=== PATIENT | female | born 2000 | race Caucasian/White ===

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

== ENCOUNTER 2019-01-26 21:44 | Emergency (ER) | payer OTHER ==
[~2019-01-26] VITALS: Ht 165.1 cm; Wt 54.4 kg
[~2019-01-26 21:44] MED LIST changes: -ALBUTEROL SULFATE 2.5 MG/3 ML NEBU NEB ONE; -IPRATROPIUM BROMIDE 0.5 MG/2.5 ML NEBU NEB ONE; -predniSONE 10 MG TABLET PO ONE
--- NOTE | 2019-01-26 21:49 | NUR ---
DR. ALFONSO AT BEDSIDE FOR MSE.
[2019-01-26] MEDS ORDERED: ALBUTEROL SULFATE 2.5 MG/3 ML NEBU NEB ONE (22:00)
[2019-01-26] MEDS ORDERED: IPRATROPIUM BROMIDE 0.5 MG/2.5 ML NEBU NEB ONE (22:00)
[2019-01-26] MEDS ORDERED: predniSONE 50 MG TABLET PO ONE (22:00)
[2019-01-26] MEDS ORDERED: ALBUTEROL SULFATE 2.5 MG/3 ML NEBU ONE (22:02)
[2019-01-26] MEDS ORDERED: IPRATROPIUM BROMIDE 0.5 MG/2.5 ML NEBU ONE (22:02)
[2019-01-26] MEDS ORDERED: predniSONE 50 MG TABLET ONE (22:16)
[2019-01-26 23:00] VITALS: BP 137/86
== END 2019-01-26 23:01 | disposition home or self-care (01) ==
LOC: ER 21:47
DX: J45.901 Unspecified asthma with (acute) exacerbation (principal); F11.10 Opioid abuse, uncomplicated; F17.210 Nicotine dependence, cigarettes, uncomplicated; Z79.899 Other long term (current) drug therapy
CPT/HCPCS: 94640; 99283; J7512; A4663; J3590

== ENCOUNTER 2019-05-14 22:31 | Emergency (ER) | payer OTHER ==
[~2019-05-14] VITALS: Ht 167.6 cm; Wt 54.4 kg
[2019-05-14] MEDS ORDERED: IPRATROPIUM BROMIDE 0.5 MG/2.5 ML NEBU NEB ONE (22:45)
[2019-05-14] MEDS ORDERED: predniSONE 10 MG TABLET PO ONE (22:45)
[2019-05-14] MEDS ORDERED: ALBUTEROL SULFATE 2.5 MG/3 ML NEBU NEB ONE (22:45)
[2019-05-14] MEDS ORDERED: FLUO20CA36 PO (22:47)
[2019-05-14] MEDS ORDERED: ALPR1TAB7 PO (22:48)
--- NOTE | 2019-05-14 22:48 | NUR ---
PT STATED SHE WOKE UP WITH SOB SHE BECAME NERVOUS AND CAME TO THE ER SOB ON REST WITH INSPIRATORY AND EXPIRATORY WHEEZING BILATERAL PT SMOKES CIGARETTES DAILY TEACHING GIVEN R/T TO QUIT WITHOUT SUCCESS AND HAS A HX ASTHMA
[2019-05-14] MEDS ORDERED: predniSONE 10 MG TABLET ONE (22:50)
[2019-05-14] MEDS ORDERED: predniSONE 50 MG TABLET ONE (22:51)
[2019-05-14 23:02] LABS: BASOPHILS # (AUTO) 0.1 K/uL (0.0-8.0); BASOPHILS % (AUTO) 1.4 % (0.0-2.0); EOSINOPHILS # (AUTO) 1.5 K/uL (0.0-0.7); HEMATOCRIT 40.7 % (31.2-41.9); HEMOGLOBIN 13.4 g/dL (10.9-14.3); LYMPHOCYTES # (AUTO) 3.3 K/uL (20.0-40.0); LYMPHOCYTES % (AUTO) 37.7 % (20.5-74.5); MEAN CORPUSCULAR HEMOGLOBIN 27.2 uug (24.7-32.8); MEAN CORPUSCULAR HGB CONC 33 g/dL (32.3-35.6); MEAN CORPUSCULAR VOLUME 82.7 fL (75.5-95.3); MONOCYTES # (AUTO) 0.7 K/uL (2.0-10.0); NEUTROPHILS # (AUTO) 3.2 K/uL (1.8-8.9); NEUTROPHILS % (AUTO) 35.9 % (31.5-64.5); PLATELET COUNT (AUTO) 342 K/uL (179-408); RED BLOOD CELL COUNT(AUTO) 4.92 MIL/uL (3.63-4.92); WHITE BLOOD COUNT (AUTO) 8.8 K/uL (3.8-11.8)
[2019-05-14 23:11] LABS: CREATININE 0.8 mg/dL (0.6-1.3); POTASSIUM 4.4 mmol/L (3.5-5.1)
--- NOTE | 2019-05-14 23:17 | NUR ---
REASSESS PT CONDITION STABLE SHE WAS ON HER CELL PHONE DENIES PAIN/DISCOMFORT AT THIS TIME
[2019-05-14 23:27] LABS: BILIRUBIN,DIRECT 0.1 mg/dL (0.0-0.2); BILIRUBIN,TOTAL 0.2 mg/dL (0.2-1.0); TOTAL PROTEIN, SERUM 7.6 g/dL (6.4-8.2)
--- NOTE | 2019-05-14 23:35 | NUR ---
PATIENT DECLINED XRAY @ 11:30P
--- NOTE | 2019-05-15 00:50 | NUR ---
PT DISCHARGE TO HOME CONDITION STABLE DISCHARGE TEACHING GIVEN AND PRESCRIPTION TEACHING GIVEN WITH EFFECT DENIES PAIN/DISCOMFORT
[2019-05-15 01:03] VITALS: BP 133/70
== END 2019-05-15 00:50 | disposition home or self-care (01) ==
LOC: ER 22:33
DX: J45.901 Unspecified asthma with (acute) exacerbation (principal); F11.10 Opioid abuse, uncomplicated; F17.210 Nicotine dependence, cigarettes, uncomplicated; Z71.6 Tobacco abuse counseling; Z79.899 Other long term (current) drug therapy
CPT/HCPCS: 36415; 80048; 80076; 83880; 84484; 85025; 87040 ×2; 93005; 94644; 99285; 99406; J7512 ×2; 70030-TC; A4663; J3590

== ENCOUNTER 2019-05-29 06:28 | Emergency (ER) | payer OTHER ==
[~2019-05-29] VITALS: Ht 167.6 cm; Wt 54.4 kg
[~2019-05-29 06:28] MED LIST changes: +ALPR1TAB7 PO; +FLUO20CA36 PO
--- NOTE | 2019-05-29 06:51 | NUR ---
pt stated she has trouble breathing lung sounds cta but pt has a hx asthma
[2019-05-29] MEDS ORDERED: ALBUTEROL SULFATE 2.5 MG/3 ML NEBU ONE (06:59)
[2019-05-29] MEDS ORDERED: ALBUTEROL SULFATE 2.5 MG/3 ML NEBU NEB ONE (07:00)
--- NOTE | 2019-05-29 07:33 | NUR ---
pt was d/c to home. d/c instructions given to the pt by dr oliver.
[2019-05-29 07:34] VITALS: BP 134/65
== END 2019-05-29 07:35 | disposition home or self-care (01) ==
LOC: ER 06:28
DX: J45.901 Unspecified asthma with (acute) exacerbation (principal); F17.210 Nicotine dependence, cigarettes, uncomplicated; F11.10 Opioid abuse, uncomplicated; Z59.0 Homelessness; Z79.899 Other long term (current) drug therapy
CPT/HCPCS: A4663

== ENCOUNTER 2019-06-13 11:21 | Emergency (ER) | payer OTHER ==
[~2019-06-13] VITALS: Ht 167.6 cm; Wt 54.4 kg
--- NOTE | 2019-06-13 11:33 | NUR ---
Patient discharged to home in stable conditon. Written and verbal after care instructions given. Patient verbalizes understanding of instructions.
[2019-06-13 11:42] VITALS: BP 116/78
== END 2019-06-13 11:30 | disposition home or self-care (01) ==
LOC: ER 11:21
DX: J45.901 Unspecified asthma with (acute) exacerbation (principal); F17.210 Nicotine dependence, cigarettes, uncomplicated; F11.10 Opioid abuse, uncomplicated; Z59.0 Homelessness; Z79.899 Other long term (current) drug therapy
CPT/HCPCS: A4663

== ENCOUNTER 2019-07-09 21:54 | Emergency (ER) | payer SELFPAY ==
--- NOTE | 2019-07-09 21:58 | NUR ---
Patient not in waiting room.
--- NOTE | 2019-07-09 22:25 | NUR ---
Patient left without being seen by ER physician or triaged.
== END 2019-07-09 22:27 | disposition left against medical advice (07) ==
LOC: ER 21:54
DX: Z53.21 Procedure and treatment not carried out due to patient leaving prior to being seen by health care provider (principal)

== ENCOUNTER 2019-10-08 03:41 | Emergency (ER) | payer OTHER ==
[~2019-10-08] VITALS: Ht 167.6 cm; Wt 54.4 kg
--- NOTE | 2019-10-08 03:52 | NUR ---
PATIENT WAS MSE BY DR PAIZ IN ROOM 04A. PATIENT A & O X3.
[2019-10-08] MEDS ORDERED: predniSONE 20 MG TABLET ONE (03:56)
[2019-10-08] MEDS ORDERED: ALBUTEROL SULFATE 2.5 MG/3 ML NEBU NEB ONE ×2 (04:00→06:15)
[2019-10-08] MEDS ORDERED: ALBUTEROL SULFATE 2.5 MG/3 ML NEBU ONE ×2 (04:00→06:17)
[2019-10-08] MEDS ORDERED: IPRATROPIUM BROMIDE 0.5 MG/2.5 ML NEBU NEB ONE ×2 (04:00→06:15)
[2019-10-08] MEDS ORDERED: predniSONE 10 MG TABLET PO ONE (04:00)
[2019-10-08] MEDS ORDERED: IPRATROPIUM BROMIDE 0.5 MG/2.5 ML NEBU ONE ×2 (04:01→06:17)
--- NOTE | 2019-10-08 07:14 | NUR ---
Architectural Practice Manager assumes care, hands off report received from ROMANA Lowery. Received patient is for discharge, pending arrival of patient's mother for ride. Patient is resting comfortably on gurney with eyes closed, respiration:easy, clear breathsounds bilaterally, NAD.
--- NOTE | 2019-10-08 07:54 | NUR ---
Juice and crackers provided. Patient is trying to call for her ride.PATIENT IS PAIN FREE AT THIS TIME. Patient discharged to home in stable conditon. Written and verbal after care instructions given to patient. Patient verbalizes understanding & compliance of instructions.
--- NOTE | 2019-10-08 08:03 | NUR ---
Patient is AOx4, & said, "If my mother comes here, tell her I walked home. I can't wait for her." Patient left ER with brisk steady gait.
== END 2019-10-08 08:05 | disposition home or self-care (01) ==
LOC: ER 03:44
DX: J45.901 Unspecified asthma with (acute) exacerbation (principal); F41.9 Anxiety disorder, unspecified; F17.210 Nicotine dependence, cigarettes, uncomplicated; Z79.899 Other long term (current) drug therapy
CPT/HCPCS: 94640; 94644; 99285; 99406; J7512; A4663; J3590

== ENCOUNTER 2020-06-28 22:09 | Emergency (ER) | payer MEDICAID, OTHER ==
[~2020-06-28] VITALS: Ht 167.6 cm; Wt 54.4 kg
[2020-06-28] MEDS ORDERED: LORA1TAB PO (22:17)
[2020-06-28] MEDS ORDERED: PRED-170 PO (22:17)
[2020-06-28] MEDS ORDERED: ALPR1TAB2 PO (22:17)
--- NOTE | 2020-06-28 22:41 | NUR ---
Dr. Ely at bedside for MSE.
--- NOTE | 2020-06-28 23:25 | NUR ---
Pt asked me if she can step outside to answer a very important phone call outside of er. instructed pt to comeback right away.
--- NOTE | 2020-06-28 23:30 | NUR ---
Michelle CARRILLO reported that patient asked to go out for a " very important phone call" five minutes ago, and has not come back since. Security was already notified by Michelle CARIRLLO.
--- NOTE | 2020-06-28 23:43 | NUR ---
Pt has not come back and security has not reported any signs of her within the vicinity. Pt was alert and oriented and able to make decisions for herself, appears that she eloped without being discharged by the doctor. MD and Charge Nurse made aware.
== END 2020-06-28 23:49 | disposition left against medical advice (07) ==
LOC: ER 22:11
DX: M79.641 Pain in right hand (principal); F17.210 Nicotine dependence, cigarettes, uncomplicated; J45.909 Unspecified asthma, uncomplicated; F41.9 Anxiety disorder, unspecified; Z79.52 Long term (current) use of systemic steroids; Z79.899 Other long term (current) drug therapy
CPT/HCPCS: 73130; A4663

== ENCOUNTER 2020-12-19 23:03 | Emergency (ER) | payer MEDICAID ==
[~2020-12-19] VITALS: Ht 162.6 cm; Wt 54.4 kg
[~2020-12-19 23:03] MED LIST changes: +ALPR1TAB2 PO; -ALPR1TAB7 PO; -FLUO20CA36 PO; +LORA1TAB PO; +PRED-170 PO
[2020-12-19] MEDS ORDERED: IPRATROPIUM BROMIDE 0.5 MG/2.5 ML NEBU ONE (23:24)
[2020-12-19] MEDS ORDERED: ALBUTEROL SULFATE 2.5 MG/3 ML NEBU ONE (23:24)
[2020-12-19] MEDS ORDERED: ALBUTEROL SULFATE 2.5 MG/3 ML NEBU NEB ONE (23:30)
[2020-12-19] MEDS ORDERED: predniSONE 10 MG TABLET PO ONE (23:30)
[2020-12-19] MEDS ORDERED: IPRATROPIUM BROMIDE 0.5 MG/2.5 ML NEBU NEB ONE (23:30)
[2020-12-19] MEDS ORDERED: predniSONE 50 MG TABLET ONE (23:35)
[2020-12-19] MEDS ORDERED: predniSONE 10 MG TABLET ONE (23:35)
--- NOTE | 2020-12-20 00:07 | NUR ---
PT RECEIVED ALL MEDS AND RESP TX ORDERED. PT THEN D/C'D HOME WITH ACI/RX'S. PT STATED SHE FELT ALOT BETTER, DENIED SOB. PT AMBUATED W/O DIFF/TOOK ALL BELONGINGS.
[2020-12-20] MEDS ORDERED: ALBU2.5V38 NEB (00:08)
[2020-12-20] MEDS ORDERED: ALBU8.5H8 INH (00:08)
[2020-12-20 00:11] VITALS: BP 104/43
== END 2020-12-20 00:07 | disposition home or self-care (01) ==
LOC: ER 23:04
DX: J45.909 Unspecified asthma, uncomplicated (principal); F17.210 Nicotine dependence, cigarettes, uncomplicated; F41.9 Anxiety disorder, unspecified; Z79.899 Other long term (current) drug therapy
CPT/HCPCS: 94640; 99283; J7512 ×2; A4663; J3590

== ENCOUNTER 2022-03-05 22:19 | Emergency (ER) | payer SELFPAY ==
[~2022-03-05 22:19] MED LIST changes: +ALBU2.5V38 NEB
--- NOTE | 2022-03-05 22:24 | NUR ---
Patient was called to be triaged but was not present in the waiting room or outside of ER.
--- NOTE | 2022-03-05 22:35 | NUR ---
PATIENT WAS NOT TRIAGED OR SEEN BY ERMD.
== END 2022-03-05 22:45 | disposition left against medical advice (07) ==
LOC: ER 22:21
DX: Z53.21 Procedure and treatment not carried out due to patient leaving prior to being seen by health care provider (principal)

== ENCOUNTER 2024-10-06 01:34 | Emergency (ER) | payer MEDICAID, OTHER ==
[~2024-10-06] VITALS: Ht 167.6 cm; Wt 59.0 kg
[2024-10-06 01:38] VITALS: O2SAT 98
== END 2024-10-06 03:50 | disposition left against medical advice (07) ==
LOC: ER 01:44
DX: K04.7 Periapical abscess without sinus (principal); Z53.21 Procedure and treatment not carried out due to patient leaving prior to being seen by health care provider
CPT/HCPCS: A4606; A4663